=== PATIENT | male | born 2000 | race Two or more races ===

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

== ENCOUNTER 2022-06-14 16:05 | Emergency (ER) | payer OTHER ==
[~2022-06-14] VITALS: Ht 162.6 cm; Wt 68.0 kg
== END 2022-06-14 19:39 | disposition home or self-care (01) ==
LOC: ER 16:05
DX: I73.00 Raynaud's syndrome without gangrene (principal)

== ENCOUNTER 2022-06-30 16:13 | Emergency (ER) | payer OTHER ==
[~2022-06-30] VITALS: Ht 172.7 cm; Wt 59.4 kg
== END 2022-06-30 21:35 | disposition home or self-care (01) ==
LOC: ER 16:13
DX: R42 Dizziness and giddiness (principal); Z20.822 Contact with and (suspected) exposure to COVID-19

== ENCOUNTER 2023-12-29 23:12 | Emergency (ER) | payer OTHER ==
[~2023-12-29] VITALS: Ht 162.6 cm; Wt 72.6 kg
[2023-12-30] MEDS ORDERED: 0.9 % SODIUM CHLORIDE 1,000 ML IV STA (01:33)
[2023-12-30 02:02] LABS: HEMATOCRIT 41.3 % (39.0-48.0); HEMOGLOBIN 14.7 g/dL (13-16.00); MEAN CELL VOLUME 90.5 fL (80.0-100.00); MEAN CORPUSCULAR HEMOGLOBIN 32.1 pg (27.00-32.0); MEAN CORPUSCULAR HGB CONC 35.5 g/dl (32.0-36.0); PLATELET COUNT 247 K/uL (150-450); RED BLOOD COUNT 4.56 M/uL (4.00-6.00); RED CELL DISTRIBUTION WIDTH 11.9 % (11.5-14.5)
[2023-12-30 02:19] LABS: CALCIUM 9.6 mg/dL (8.5-10.1); CREATININE SERUM 0.97 mg/dL (0.70-1.30); GFR 94.3; POTASSIUM 3.89 mEq/L (3.5-5.1)
== END 2023-12-30 03:42 | disposition home or self-care (01) ==
LOC: ER 23:14
DX: K59.1 Functional diarrhea (principal)